=== PATIENT | male | born 1990 | race Caucasian/White ===

== ENCOUNTER 2018-06-27 13:00 | Emergency (ER) | payer BC ==
[2018-06-27 13:19] VITALS: BP 139/90
--- NOTE | 2018-06-27 13:30 | EDM.PDOC ---
ED HPI GENERAL MEDICAL PROBLEM - General Chief Complaint: Eye Problems Stated Complaint: VISION PROBLEMS Time Seen by Provider: 06/27/18 13:30 Source of Information: Reports: Patient History Limitations: Reports: No Limitations - History of Present Illness INITIAL COMMENTS - FREE TEXT/NARRATIVE: 28-year-old male presents for evaluation and treatment of vision changes. Patient reports vision changes have been present for the last week, progressively worsening. He denies any double vision or blurry vision. He really appreciates vision changes when he is driving. States that he has " choppy " vision. States that he will see an oncoming vehicle. It will go back and forth as to where it is and where it previously was until the vehicle passes him. States he has never had anything like this before. Denies any recent trauma. He reports associated symptoms of pressure and fullness in his face and his sinuses in the back of his head. Denies any positional component to the head pressure. He feels dizzy. He also reports night sweats and hot flashes. No fevers, chills, nausea or vomiting. Patient reports that he wears contacts. Unsure vision without correction; with correction is 20/20. wears contacts at all times. most recently changed 1 week ago. Does not normally wear them bed. No glasses now. [facility], most recent visit was in January. Reports he is nearsighted. Patient reports his seasonal allergies. Head Pain Score (Numeric/FACES): 3 - Related Data Allergies Allergy/AdvReac Type Severity Reaction Status Date / Time cefaclor [From [facility]] Allergy Hives Verified 06/27/18 13:19 Penicillins Allergy Hives Verified 06/27/18 13:19 Home Meds: Home Meds Escitalopram [Lexapro] 10 mg PO DAILY 10/07/16 [History] Past Medical History Psychiatric History: Reports: Depression - Past Surgical History GI Surgical History: Reports: Cholecystectomy Social & Family History - Tobacco Use Smoking Status *Q: Current Some Day Smoker Years of Tobacco use: 10 Packs/Tins Daily: 0.5 - Caffeine Use Caffeine Use: Reports: Coffee, Energy Drinks - Recreational Drug Use Recreational Drug Use: No - Living Situation & Occupation Living situation: Reports: Occupation: Employed ED ROS GENERAL - Review of Systems Review Of Systems: See Below Constitutional: Reports: Night Sweats. Denies: Fever, Chills HEENT: Reports: Sinus Problem (repors congestion and sinus pressure), Vision Change (denies blurry vision or double vision; reports problems visualizing moving objects), Other (denies any tinnitus). Denies: Hearing Loss GI/Abdominal: Denies: Nausea, Vomiting Neurological: Reports: Dizziness, Headache (reports head pressure to the back of his head) ED EXAM GENERAL W FULL EYE - Physical Exam Exam: See Below Exam Limited By: No Limitations General Appearance: Alert, WD/WN, No Apparent Distress Eye Exam: Bilateral Eye: EOMI, Normal Inspection, PERRL Visual Acuity (R) 20/: 25 Visual Acuity (L) 20/: 25 With Correction: Yes Eyelids: Bilateral: Normal Appearance Conjunctiva & Sclera: Bilateral: Normal Appearance Cornea Exam: Bilateral: Normal Appearance Extraocular Movements: Bilateral: Intact Pupils: Normal Accommodation Pupillary Size: Bilateral: 5 mm Pupillary Reaction: Bilateral: Brisk Anterior Chamber: Bilateral: Normal Appearance Posterior Chamber: Bilateral: Normal Funduscopic Ears: Normal External Exam, Normal Canal, Hearing Grossly Normal, Normal TMs Nose: Normal Inspection Throat/Mouth: Normal Inspection, Normal Lips, Normal Voice, No Airway Compromise Respiratory/Chest: No Respiratory Distress, Lungs Clear, Normal Breath Sounds Cardiovascular: Normal Peripheral Pulses, Regular Rate, Rhythm, No Murmur Neurological: Alert, Oriented, Normal Cognition Psychiatric: Normal Affect, Normal Mood Skin Exam: Warm, Dry, Normal Color Course - Vital Signs Last Recorded V/S: Last Vital Signs Temp 98.4 F 06/27/18 13:14 Pulse 71 06/27/18 13:14 Resp 13 06/27/18 13:14 BP 139/90 06/27/18 13:14 Pulse Ox 100 06/27/18 13:14 - Radiology Interpretation Free Text/Narrative:: Head CT Technique: Multiple axial sections through the brain were obtained. Intravenous contrast was not utilized. Comparison: No prior head CT exam is available. Findings: Ventricles along with basal cisterns and sulci over convexities appear within normal limits for the patient's age. No abnormal parenchymal densities are seen. No evidence of intracranial hemorrhage. No midline shift or mass effect is seen. Bone window settings were reviewed which shows no acute calvarial abnormality. Minimal mucosal thickening is seen within the ethmoid sinuses. No acute calvarial abnormality is seen. Impression: 1. Nothing acute is seen on noncontrast head CT study. 2. Sinus findings which are felt to be incidental. - Re-Assessments/Exams Free Text/Narrative Re-Assessment/Exam: 06/27/18 14:21 Visual acuity exam with correction 25/25. Slit-lamp exam is unremarkable. Doesn't seem the same having problems with his eyes. His retina he has good red reflex and good vessels. Does not seem to a problem with his eyes are more a problem with vision processing. I did offer him a head CT which he was eager to do. Will obtain a noncontrast hea further eval. 06/27/18 14:[address] images with the patient. Recommend follow-up with an eye doctor and his PCP, he is to return to the ER should his symptoms change or worsen. Discharge instructions as documented. Departure - Departure Time of Disposition: 14:58 Disposition: Home, Self-Care 01 Condition: Good Clinical Impression: Changes in vision - Discharge Information *PRESCRIPTION DRUG MONITORING PROGRAM REVIEWED*: No *COPY OF PRESCRIPTION DRUG MONITORING REPORT IN PATIENT AUDREY: No Referrals: Alan Martin MD [Primary Care Provider] - Forms: ED Department Discharge Additional Instructions: Follow-up with your PCP. If your symptoms continue, may consider an MRI ofthe brain for further evaluation. Follow-up with an eye doctor to have your eyes checked. Please return to the ER should your symptoms change or worsen.
--- NOTE | 2018-06-27 14:41 | CT ---
Head CT Technique: Multiple axial sections through the brain were obtained. Intravenous contrast was not utilized. Comparison: No prior head CT exam is available. Findings: Ventricles along with basal cisterns and sulci over convexities appear within normal limits for the patient's age. No abnormal parenchymal densities are seen. No evidence of intracranial hemorrhage. No midline shift or mass effect is seen. Bone window settings were reviewed which shows no acute calvarial abnormality. Minimal mucosal thickening is seen within the ethmoid sinuses. No acute calvarial abnormality is seen. Impression: 1. Nothing acute is seen on noncontrast head CT study. 2. Sinus findings which are felt to be incidental. Diagnostic code #2
== END 2018-06-27 15:05 | disposition home or self-care (01) ==
LOC: JD.ED 13:00
DX: H53.8 Other visual disturbances (principal); F17.210 Nicotine dependence, cigarettes, uncomplicated; Z88.0 Allergy status to penicillin; Z88.8 Allergy status to other drugs, medicaments and biological substances
CPT/HCPCS: 70450; 70450-26; 99284-25

== ENCOUNTER 2019-07-07 12:33 | Emergency (ER) | payer BC ==
[2019-07-07 12:48] VITALS: BP 121/89
--- NOTE | 2019-07-07 13:18 | EDM.PDOC ---
ED HPI GENERAL MEDICAL PROBLEM - General Chief Complaint: Neurological Problem Stated Complaint: POSSIBLE SEIZURES AND HEADACHE Time Seen by Provider: 07/07/19 12:50 Source of Information: Reports: Patient, RN Notes Reviewed History Limitations: Reports: No Limitations - History of Present Illness INITIAL COMMENTS - FREE TEXT/NARRATIVE: Patient is a 29-year-old male who presents to the ED for the evaluation of a headache and possible seizures. The patient notes that for around 2-3 weeks now he has been having these episodes where he gets this overwhelming dj vu type feeling, this last around 30-60 seconds. Directly afterwards he feels hot/ sweaty and somewhat confused, he notes that he has been having memory issues with his long-term and short-term memory as well. He just does not feel like himself. He states that these are happening more frequent where he gets a couple episodes a day. He has been missing work due to these episodes. He did go to his primary care provider, Dr. Arredondo and he referred him to neurology , but does not have an appointment with them until July [address] Warner in [place]. The patient denies any sort of fevers/chills, nausea or vomiting, palpitations, chest pain, shortness of breath, but does note some generalized weakness. Headache Pain Score (Numeric/FACES): 4 - Related Data Allergies Allergy/AdvReac Type Severity Reaction Status Date / Time cefaclor [From [facility]] Allergy Hives Verified 07/07/19 12:48 Penicillins Allergy Hives Verified 07/07/19 12:48 Home Meds: Home Meds Escitalopram [Lexapro] 10 mg PO DAILY 10/07/16 [History] Past Medical History Psychiatric History: Reports: Depression - Past Surgical History GI Surgical History: Reports: Cholecystectomy Social & Family History - Caffeine Use Caffeine Use: Reports: Coffee, Energy Drinks - Living Situation & Occupation Living situation: Reports: Occupation: Employed ED ROS GENERAL - Review of Systems Review Of Systems: See Below Constitutional: Reports: Weakness. Denies: Fever, Chills HEENT: Reports: No Symptoms Respiratory: Denies: Shortness of Breath Cardiovascular: Denies: Chest Pain Endocrine: Reports: No Symptoms GI/Abdominal: Denies: Diarrhea, Nausea, Vomiting : Reports: No Symptoms Musculoskeletal: Reports: No Symptoms Skin: Reports: No Symptoms Neurological: Reports: Confusion, Headache, Weakness. Denies: Syncope, Difficulty Walking Psychiatric: Reports: Anxiety Hematologic/Lymphatic: Reports: No Symptoms Immunologic: Reports: No Symptoms ED EXAM, GENERAL - Physical Exam Exam: See Below Exam Limited By: No Limitations General Appearance: Alert, WD/WN, No Apparent Distress Eye Exam: Bilateral Eye: EOMI, Normal Inspection, PERRL Ears: Normal External Exam, Normal Canal, Hearing Grossly Normal, Normal TMs Nose: Normal Inspection Throat/Mouth: Normal Inspection, Normal Lips, Normal Teeth, Normal Gums, Normal Oropharynx, Normal Voice, No Airway Compromise Head: Atraumatic, Normocephalic Neck: Normal Inspection, Supple, Non-Tender, Full Range of Motion Respiratory/Chest: No Respiratory Distress, Lungs Clear, Normal Breath Sounds, No Accessory Muscle Use, Chest Non-Tender Cardiovascular: Normal Peripheral Pulses, Regular Rate, Rhythm, No Murmur Peripheral Pulses: 3+: Radial (L), Radial (R), Dorsalis Pedis (L), Dorsalis Pedis (R) GI/Abdominal: Normal Bowel Sounds, Soft, Non-Tender, No Distention, No Mass Extremities: Normal Inspection, Normal Capillary Refill Neurological: Alert, Oriented, Normal Cognition, No Motor/Sensory Deficits Psychiatric: Normal Affect, Normal Mood Skin Exam: Warm, Dry, Intact, Normal Color, No Rash Course - Vital Signs Last Recorded V/S: Last Vital Signs Temp 98.4 F 07/07/19 12:44 Pulse 68 07/07/19 12:44 Resp 18 07/07/19 12:44 BP 121/89 07/07/19 12:44 Pulse Ox 100 07/07/19 12:44 - Orders/Labs/Meds Orders: Active Orders 24 hr Category Date Time Status Sodium Chloride 0.9% [Saline Flush] Med 07/07/19 14:36 Active 10 ml FLUSH ONETIME PRN Medication Orders Sodium Chloride (Saline Flush) 10 ml FLUSH ONETIME PRN PRN Reason: Keep Vein Open Last Admin: 07/07/19 14:56 Dose: 10 ml Meds: Medications Generic Name Dose Route Start Last Admin Trade Name Freq PRN Reason Stop Dose Admin Sodium Chloride 10 ml 07/07/19 14:36 07/07/19 14:56 Saline Flush FLUSH 10 ml ONETIME PRN Administration Keep Vein Open Discontinued Medications Generic Name Dose Route Start Last Admin Trade Name Freq PRN Reason Stop Dose Admin Gadobenate Dimeglumine 15 ml 07/07/19 14:36 07/07/19 14:56 Multihance IVPUSH 07/07/19 14:37 15 ml ONETIME ONE Administration Lorazepam 1 mg 07/07/19 14:10 07/07/19 13:52 Ativan PO 07/07/19 14:11 1 mg ONETIME ONE Administration - Re-Assessments/Exams Free Text/Narrative Re-Assessment/Exam: 07/07/19 13:41 Patient presents to the ED for the evaluation of these dj vu feelings. I did discuss the case with Dr. Bowers, and he would agree with Dr. Arredondo that he thinks his might be absence seizures, he recommends doing a brain MRI and EEG before neurology appointment so that his neurology appointment is more beneficial. There was a little opening in the MRI scheduled for a brain today at 2:30, so I did order a brain MRI to be done today and will provide the patient with an outpatient order for EEG. I did order 1 mg Ativan before the patient goes to MRI, as he states he has anxiety in enclosed spaces. 07/07/19 15:33 Patient's MRI is done, and was done with and without IV contrast per our radiologist's recommendation. There is no abnormality identified on the MRI study of the brain. I will fax this report to the neurology clinic at [facility] as well so Dr. Warner can have it for review before the gentleman's appointment. Will discharge patient home with general recommendations. Departure - Departure Time of Disposition: 15:36 Disposition: Home, Self-Care 01 Condition: Fair Clinical Impression: Atypical absence seizure - Discharge Information *PRESCRIPTION DRUG MONITORING PROGRAM REVIEWED*: No *COPY OF PRESCRIPTION DRUG MONITORING REPORT IN PATIENT AUDREY: No Instructions: Seizure, Adult, [id number] Referrals: Alan Martin MD [Primary Care Provider] - Forms: ED Department Discharge Additional Instructions: You were evaluated in the ED today for your feelings of dj vu. It is thought that these might be due to some sort of absence seizures. You did have a brain MRI done at today's ED visit, a copy of the results were provided to you and faxed to the [facility] neurology clinic that Dr. Warner works at. An outpatient order for EEG was also faxed to [facility], they should be calling you to schedule an appointment within the next day or 2. Please call the neurology clinic at [facility] if you have not heard anything from them by the end of business day tomorrow, so you can get your EEG scheduled. Please report to [facility] for the EEG at the appointed time as this will help guide your neurology appointment with Dr. Warner that has already been scheduled. Please return to the ED if your symptoms change or worsen. - My Orders Last 24 Hours: My Active Orders 07/07/19 14:36 Sodium Chloride 0.9% [Saline Flush] 10 ml FLUSH ONETIME PRN - Assessment/Plan Last 24 Hours: My Active Orders 07/07/19 14:36 Sodium Chloride 0.9% [Saline Flush] 10 ml FLUSH ONETIME PRN
[2019-07-07] MEDS ORDERED: LORazepam 0.5 MG Tab PO ONE (14:10)
[2019-07-07] MEDS ORDERED: Gadobenate Dimeglumine 529 MG/ML 15 ML SDV IVPUSH ONE (14:36)
[2019-07-07] MEDS ORDERED: Sodium Chloride 0.9% 10 ML Syringe FLUSH PRN (14:36)
--- NOTE | 2019-07-07 15:18 | MR ---
Addendum: Previous outside MRI dated 08/21/18 has been made available. 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 Other portions of the MRI study also remains stable. Note: No report has been made available of prior outside MRI. --- Addendum1 above dictated on [07/07/2019 15:57] by [Thais Solitario, Tremaine Black] --- --- Addendum1 above signed on [07/07/2019 16:05] by [Thais Solitario Hilton J.] --- --- Original report below dictated on [07/07/2019 15:06] by [Thais Solitario, Tremaine Black] --- --- Original report below signed on [07/07/2019 15:13] by [Thais Solitario Hilton J.] --- MRI brain (without and with intravenous contrast) Technique: T1 and T2 FLAIR sagittal; T1 FLAIR and T2-weighted coronal; T2, T2 FLAIR, T1 and diffusion axial; postcontrast T1 axial and post contrast T1 FLAIR coronal images were obtained of the brain. Comparison: Prior head CT study of 06/27/18. Findings: Ventricles along with basal cisterns and sulci over the convexities are within normal limits for the patient's age. No abnormal signal is seen within the brain parenchyma. No midline shift or mass effect is seen. The benítez-white matter distribution appears within normal limits. Normal signal void is seen within the major cerebral arteries within the skull base. No acute paranasal sinus disease is seen. No midline shift or mass effect is seen. No acute diffusion abnormalities are identified. No abnormal enhancement is seen within the brain parenchyma. Impression: 1. No abnormality is identified on MRI study of the brain performed without and with intravenous contrast. Diagnostic code #1 --- Addendum1 signed ---
== END 2019-07-07 16:14 | disposition home or self-care (01) ==
LOC: JD.ED 12:33
DX: G40.89 Other seizures (principal); F32.9 Major depressive disorder, single episode, unspecified; Z88.0 Allergy status to penicillin; Z88.1 Allergy status to other antibiotic agents; Z79.899 Other long term (current) drug therapy
CPT/HCPCS: 70553; 99284; A9270; A9577

== ENCOUNTER 2019-08-22 00:20 | Emergency (ER) | payer BC ==
[2019-08-22 00:30] VITALS: BP 118/70; PULSE 78
[2019-08-22] MEDS ORDERED: Ondansetron 4 MG/2 ML SDV IVPUSH ONE (01:00)
[2019-08-22] MEDS ORDERED: Sodium Chloride 0.9% 1,000 ML IV SCH (01:00)
--- NOTE | 2019-08-22 01:04 | EDM.PDOC ---
ED HPI GENERAL MEDICAL PROBLEM - General Chief Complaint: Chest Pain Stated Complaint: CHEST PAIN/VOMITING Time Seen by Provider: 08/22/19 00:38 Source of Information: Reports: Patient History Limitations: Reports: No Limitations - History of Present Illness INITIAL COMMENTS - FREE TEXT/NARRATIVE: Is a 29-year-old male. This morning he awoke with severe nausea and vomiting developed epigastric pain that was kind of severe it caused him to be dizzy and lightheaded and he was very nauseated so he comes to the ER for evaluation. He had a normal dinner with a turkey sandwich that he made it home. He didn't eat anything unusual. He has no history of gallbladder problems or esophageal reflux. His daughter however has been sick with a stomach virus and some nausea and vomiting over the last week. He denies any fever or chills. He denies any blood in the vomitus. He has taken a few sips of water after the incident and be able to keep it down. That severe epigastric pain that he was having is eased up and is almost gone now. Epigastric Pain Score (Numeric/FACES): 6 - Related Data Allergies Allergy/AdvReac Type Severity Reaction Status Date / Time cefaclor [From [facility]] Allergy Hives Verified 08/22/19 00:44 Penicillins Allergy Hives Verified 08/22/19 00:44 Home Meds: Home Meds Escitalopram [Lexapro] 10 mg PO DAILY 10/07/16 [History] Ondansetron [Zofran] 4 mg PO Q6H PRN #15 tab 08/22/19 [Rx] Past Medical History Psychiatric History: Reports: Depression - Past Surgical History GI Surgical History: Reports: Cholecystectomy Social & Family History - Tobacco Use Smoking Status *Q: Never Smoker - Caffeine Use Caffeine Use: Reports: None - Recreational Drug Use Recreational Drug Use: No - Living Situation & Occupation Living situation: Reports: Occupation: Employed ED ROS GENERAL - Review of Systems Review Of Systems: See Below Constitutional: Denies: Fever, Chills HEENT: Reports: No Symptoms Respiratory: Denies: Shortness of Breath, Cough Cardiovascular: Reports: Chest Pain Endocrine: Reports: No Symptoms GI/Abdominal: Reports: Abdominal Pain, Nausea, Vomiting : Reports: No Symptoms Musculoskeletal: Reports: No Symptoms Skin: Reports: No Symptoms Neurological: Reports: No Symptoms Psychiatric: Reports: No Symptoms Hematologic/Lymphatic: Reports: No Symptoms ED EXAM, GI/ABD - Physical Exam Exam: See Below Exam Limited By: No Limitations General Appearance: Alert, WD/WN, No Apparent Distress Eyes: Bilateral: Normal Appearance Ears: Normal External Exam, Normal Canal, Normal TMs Nose: Normal Inspection Throat/Mouth: Normal Inspection, Normal Lips, Normal Voice, No Airway Compromise Head: Normocephalic Neck: Supple Respiratory/Chest: No Respiratory Distress, Lungs Clear, Normal Breath Sounds Cardiovascular: Regular Rate, Rhythm, No Murmur GI/Abdominal Exam: Soft, Other (He has mild tenderness in the epigastric area but there is no other abdominal tenderness, bowel sounds are positive but they are decreased) Back Exam: Normal Inspection, Full Range of Motion Extremities: Normal Inspection, Normal Range of Motion Neurological: Alert, Oriented Psychiatric: Normal Affect, Normal Mood Skin Exam: Warm, Dry EKG INTERPRETATION EKG Date: 08/22/19 Time: 00:45 EKG Interpretation Comments: Normal sinus rhythm with rate of 75, no acute ST or T-wave changes, no acute ischemia, normal EKG Course - Vital Signs Last Recorded V/S: Last Vital Signs Temp 98.6 F 08/22/19 00:26 Pulse 78 08/22/19 00:26 Resp 20 08/22/19 00:26 BP 118/70 08/22/19 00:26 Pulse Ox 99 08/22/19 00:26 - Orders/Labs/Meds Orders: Active Orders 24 hr Category Date Time Status EKG 12 Lead [EKG Documentation Completion] [RC] URGENT Care 08/22/19 00:42 Active Sodium Chloride 0.9% [Normal Saline] 1,000 ml Med 08/22/19 01:00 Active IV ASDIRECTED Medication Orders Sodium Chloride (Normal Saline) 1,000 mls @ 1,000 mls/hr IV ASDIRECTED OJ Last Admin: 08/22/19 01:12 Dose: 1,000 mls/hr Labs: Laboratory Tests 08/22/19 08/22/19 Range/Units 01:16 01:16 WBC 10.65 H (4.23-9.07) K/mm3 RBC 4.52 L (4.63-6.08) M/mm3 Hgb 13.9 D (13.7-17.5) gm/dl Hct 39.7 L (40.1-51.0) % MCV 87.8 (79.0-92.2) fl MCH 30.8 (25.7-32.2) pg MCHC 35.0 (32.2-35.5) g/dl RDW Std Deviation 38.7 (35.1-43.9) fL Plt Count 168 D (163-337) K/mm3 MPV 8.9 L (9.4-12.3) fl Neut % (Auto) 89.8 H (34.0-67.9) % Lymph % (Auto) 4.4 L (21.8-53.1) % Vance % (Auto) 5.1 L (5.3-12.2) % Eos % (Auto) 0.6 L (0.8-7.0) Baso % (Auto) 0.1 (0.1-1.2) % Neut # (Auto) 9.57 H (1.78-5.38) K/mm3 Lymph # (Auto) 0.47 L (1.32-3.57) K/mm3 Vance # (Auto) 0.54 (0.30-0.82) K/mm3 Eos # (Auto) 0.06 (0.04-0.54) K/mm3 Baso # (Auto) 0.01 (0.01-0.08) K/mm3 Manual Slide Review Abnormal smear Sodium 136 (136-145) mEq/L Potassium 3.7 (3.5-5.1) mEq/L Chloride 102 (98-107) mEq/L Carbon Dioxide 27 (21-32) mEq/L Anion Gap 10.7 (5-15) BUN 18 (7-18) mg/dL Creatinine 0.7 (0.7-1.3) mg/dL Est Cr Clr Drug Dosing 153.36 mL/min Estimated GFR (MDRD) > 60 (>60) mL/min BUN/Creatinine Ratio 25.7 H (14-18) Glucose 108 H (74-106) mg/dL Calcium 8.2 L (8.5-10.1) mg/dL Total Bilirubin 0.5 (0.2-1.0) mg/dL AST 20 (15-37) U/L ALT 29 (16-63) U/L Alkaline Phosphatase 57 (46-116) U/L Troponin I < 0.017 (0.00-0.056) ng/mL Total Protein 6.4 (6.4-8.2) g/dl Albumin 3.7 (3.4-5.0) g/dl Globulin 2.7 gm/dL Albumin/Globulin Ratio 1.4 (1-2) Meds: Medications Generic Name Dose Route Start Last Admin Trade Name Freq PRN Reason Stop Dose Admin Sodium Chloride 1,000 mls @ 1,000 mls/hr 08/22/19 01:00 08/22/19 01:12 Normal Saline IV 1,000 mls/hr ASDIRECTED OJ Administration Discontinued Medications Generic Name Dose Route Start Last Admin Trade Name Freq PRN Reason Stop Dose Admin Ondansetron HCl 4 mg 08/22/19 01:00 08/22/19 01:12 Zofran IVPUSH 08/22/19 01:01 4 mg ONETIME ONE Administration - Re-Assessments/Exams Free Text/Narrative Re-Assessment/Exam: 08/22/19 02:41 I spoke to the patient regarding his test results were all essentially normal. I believe that he probably has a virus that his daughter does causing some nausea and vomiting for him. I'll put him on some Zofran and instructed him to drink fluids only for the next 24 hours when he starts to eat again did eat foods are easier to digest and avoid meat and vegetables since they are hard to digest. Departure - Departure Time of Disposition: 02:42 Disposition: Home, Self-Care 01 Condition: Good Clinical Impression: Gastroenteritis Nausea & vomiting Qualifiers: Vomiting type: unspecified Vomiting Intractability: non-intractable Qualified Code(s): R11.2 - Nausea with vomiting, unspecified - Discharge Information *PRESCRIPTION DRUG MONITORING PROGRAM REVIEWED*: Not Applicable *COPY OF PRESCRIPTION DRUG MONITORING REPORT IN PATIENT AUDREY: Not Applicable Prescriptions: Ondansetron [Zofran] 4 mg PO Q6H PRN #15 tab PRN Reason: Nausea Instructions: Nausea and Vomiting, Adult Referrals: Alan Martin MD [Primary Care Provider] - Forms: ED Department Discharge Additional Instructions: Rest and sleep as much as possible today, drink lots of fluids, take the Zofran as needed for nausea and vomiting, when you start eating again on Saturday eat foods that are easy to digest and avoid meat and vegetables since they are hard to digest, follow-up with your family doctor later this week for recheck or return to the ER if your symptoms worsen - My Orders Last 24 Hours: My Active Orders 08/22/19 00:42 EKG 12 Lead [EKG Documentation Completion] [RC] URGENT 08/22/19 01:00 Sodium Chloride 0.9% [Normal Saline] 1,000 ml IV ASDIRECTED - Assessment/Plan Last 24 Hours: My Active Orders 08/22/19 00:42 EKG 12 Lead [EKG Documentation Completion] [RC] URGENT 08/22/19 01:00 Sodium Chloride 0.9% [Normal Saline] 1,000 ml IV ASDIRECTED
== END 2019-08-22 03:00 | disposition home or self-care (01) ==
LOC: JD.ED 00:20
DX: K52.9 Noninfective gastroenteritis and colitis, unspecified (principal); F32.9 Major depressive disorder, single episode, unspecified; Z88.1 Allergy status to other antibiotic agents; Z88.0 Allergy status to penicillin; Z79.899 Other long term (current) drug therapy
CPT/HCPCS: 36415; 80053; 84484; 85025; 93005; 96361; 96374; 99284; J2405; J7040; 93010; 99283